=== PATIENT | male | born 1965 | race Caucasian/White ===

== ENCOUNTER → 2019-08-22 | Outpatient (CLI) | payer OTHER ==
[~2019-08-22] MED LIST: IOPAMIDOL 370 MG/ML 200 ML INFUS..BTL INJ ONE; SODIUM CHLORIDE 0.9% 250ML 500 ML ONE; SODIUM CHLORIDE 0.9% 50ML 100 ML ONE
[2019-08-22 16:58] LABS: CREATININE, SERUM 1.46 mg/dL (0.72-1.25)
--- NOTE | 2019-08-22 18:49 | Diagnostic Imaging Report ---
CT CHEST WITH CONTRAST HISTORY: Chest pain, PE PROTOCOL COMPARISON: None available. TECHNIQUE: CT scan of the chest WITH intravenous contrast, using PE protocol. The chest was scanned utilizing a multidetector helical scanner from the lung apex through the level of the adrenal glands. Thin section reconstructions were obtained with special concentration on the pulmonary arteries. IV CONTRAST: 140 cc of Isovue-370. PROTOCOL: PE RADIATION DOSE: Total DLP: 1078.34 mGy*cm Dose modulation, iterative reconstruction, and/or weight based adjustment of the mA/kV was utilized to reduce the radiation dose to as low as reasonably achievable. COMPLICATIONS: None DISCUSSION: Lungs: Minimal bilateral atelectasis. No pneumonia or pulmonary edema. Vessels: No filling defects are identified within the pulmonary arteries to the segmental levels. Airways: The major airways are clear. Pleura: No pleural effusion or pneumothorax. Heart and mediastinum: Unremarkable Abdomen: Limited evaluation of the upper abdomen. Lymph nodes: No pathologically enlarged lymph node. Bones: No acute bone abnormality. Soft tissues: Unremarkable IMPRESSION: 1. No evidence of a pulmonary embolus. 2. No CT finding to explain the chest pain. Signed by: Dr. Jorgito Wilson D.O., M.M.M. on 08/22/2019 6:46 PM
== END ==
LOC: CT 15:57
PROVIDERS: ATTEND Internal Medicine Interventional Cardiology
DX: R07.9 Chest pain, unspecified (principal); I27.82 Chronic pulmonary embolism
CPT/HCPCS: 36415; 71260; 82565; 84520; J7050; Q9967